=== PATIENT | female | born 1995 | race Caucasian/White ===

== ENCOUNTER 2023-11-18 06:03 | Day surgery (SDC) | payer OTHER ==
[2023-11-15 08:41] VITALS: BP 131/86
[~2023-11-18] VITALS: Ht 165.1 cm; Wt 77.3 kg
[~2023-11-18 06:03] MED LIST: CLARITIN10 M2 PO; K-TAB ER20 MEQ PO; LACTATED RINGER'S 1,000 ML IV SCH; LISINOPRIL-HCT1 EAC2 PO; MAGNESIUM250 M2 PO; SERTRALINE HCL50 MG PO; VIT D3-VIT K21 EACH PO; ZOLOFT50 MG PO
[2023-11-18 06:17] VITALS: BP 134/79
[2023-11-18] MEDS ORDERED: iopamidoL 30 ML VIAL ONE (06:47)
[2023-11-18] MEDS ORDERED: SODIUM CHLORIDE 0.9% 40 ML IV ONE (06:48)
[2023-11-18] MEDS ORDERED: HEParin SOD (PORCINE) 5,000 UNIT/0.5 ML SYR SUB-Q SCH (07:00)
[2023-11-18] MEDS ORDERED: CEFAZOLIN SODIUM 2 GM/20 ML SYR IV SCH (07:00)
[2023-11-18] MEDS ORDERED: LIDOCAINE HCL 1% 5 ML SDV INJ ONE (07:00)
[2023-11-18] MEDS ORDERED: IBLOOD GLUCOSE TEST STRIP 1 EA TEST VI PRN (07:00)
[2023-11-18] MEDS ORDERED: MIDAZOLAM HCL 2 MG/2 ML VIAL ONE (07:12)
[2023-11-18] MEDS ORDERED: propofoL 200 MG/20 ML VIAL ONE (07:12)
[2023-11-18] MEDS ORDERED: DEXAMETHASONE SOD PHOS 4 MG/ML VIAL ONE (07:12)
[2023-11-18] MEDS ORDERED: ondansetron HCL 4 MG/2 ML VIAL ONE (07:12)
[2023-11-18] MEDS ORDERED: KETOROLAC TROMETHAMINE 30 MG/ML VIAL ONE (07:12)
[2023-11-18] MEDS ORDERED: fentaNYL citrate 100 MCG/2 ML VIAL ONE ×2 (07:12→08:06)
[2023-11-18] MEDS ORDERED: ROCURONIUM BROMIDE 50 MG/5 ML SYR ONE (07:13)
--- NOTE | 2023-11-18 07:33 | NUR ---
VISITED DURING SPIRITUAL CARE ROUNDS. PT GONE FOR PROCEDURE. FAMILY MEMBER IN ROOM DENIED IMMEDIATE NEEDS. QUALITY ASSURANCE ASSOCIATE PROVIDED SUPPORTIVE PRESENCE, HOSPITALITY, PRAYER. FAMILY MEMBER EXPRESSED GRATITUDE.
--- NOTE | 2023-11-18 07:35 | NUR ---
VISITED DURING SPIRITUAL CARE ROUNDS. PT NOT IN ROOM, TALKED WITH FAMILY MEMBER. NO SIGNS OF ANXIETY IN EVIDENCE, STATED NO SPIRITUAL NEEDS OR CONCERNS. IDENTITY ACCESS MANAGEMENT ARCHITECT PROVIDED SUPPORTIVE PRESENCE, HOSPITALITY, PRAYER.
[2023-11-18] MEDS ORDERED: ePHEDrine sulfate 50 MG/ML AMP ONE (08:28)
[2023-11-18] MEDS ORDERED: ACETAMINOPHEN 1,000 MG/100 ML VIAL ONE (08:34)
--- NOTE | 2023-11-18 09:13 | NUR ---
11/18/23 0913 Fadumo Garcia 0852- PT ARRIVES TO PACU, SEMI HASTINGS POSITION ON ROOM AIR. PT REQUIRE CHIN LIFT AND INTERMITTENT JAW THRUST TO MAINTAIN AIRWAY. REMOVED PILLOW FROM BEHIND HEAD, O2 SATS LOW 90'S. LR INFUSING TO RH IV. ABD SOFT, NON DISTENDED, 4 LAP SITES WITH STERI STRIPS IN PLACE. PT NON REACTIVE TO ALL STIMULUS. ALL MONITORS IN PLACE. 0857- PT SATS DROP DOWN TO 88% WITH JAW THRUST, O2 PLACED AT 6L PER MASK. CONTINUE TO MONITOR. 0900- PT REACTIVE TO STIMULUS, OPENS EYES SLIGHTLY, NO LONGER NEEDING JAW THRUST. PT SWALLOWING. O2 REMAINS IN PLACE. 09- PT OPENS EYES TO STIMULUS AND LOOKS AROUND, REORIENTED TO TIME AND PLACE. PLACED ON ROOM AIR AT THIS TIME, DNIES PAIN AND NAUSEA. PT RESTING INTERMITTENTLY. PT CONTINUES TO HAVE NYSTAGMUS AT THIS TIME.
[2023-11-18] MEDS ORDERED: NALOXONE HCL 0.4 MG SYR IV PRN ×2 (09:15→09:30)
[2023-11-18] MEDS ORDERED: ondansetron HCL 4 MG/2 ML VIAL IV PRN ×2 (09:15→09:30)
[2023-11-18] MEDS ORDERED: fentaNYL citrate 100 MCG/2 ML VIAL IV PRN (09:15)
[2023-11-18] MEDS ORDERED: OXYCODON-ACETA1 EAC2 PO (09:21)
[2023-11-18] MEDS ORDERED: IBUPROFEN600 MG PO (09:21)
[2023-11-18] MEDS ORDERED: ACETAMINOPHEN500 MG PO (09:21)
[2023-11-18 09:30] VITALS: BP 131/63
[2023-11-18] MEDS ORDERED: ACETAMINOPHEN 500 MG TAB PO PRN (09:30)
[2023-11-18] MEDS ORDERED: IBUPROFEN 600 MG TAB PO PRN (09:30)
[2023-11-18] MEDS ORDERED: LACTATED RINGER'S 1,000 ML IV SCH (09:30)
[2023-11-18] MEDS ORDERED: OXYCODONE/APAP 7.5/325 TAB PO PRN (09:30)
--- NOTE | 2023-11-18 09:30 | NUR ---
PT ARRIVES TO FROM PACU VIA STRETCHER. PT IS SLIGHTLY TEARFUL AT THIS TIME, BUT STATES PAIN IS 3/10 AND TOLERABLE AT THIS TIME. PT DESCRIBES PAIN A PRESSURE IN HER ABDOMEN. X4 LAP SITES VISUALIZED, STERI STRIPS INTACT AND SCANT AMOUNT OF SS DRAINAGE AT THIS TIME. PT ON RA AND O2 >90% VIA PULSE OX, RESPIRATIONS EVEN AND UNLABORED, NO SIGNS OF DISTRESS. REPORT RECEIVED FROM FROM RONNELL JONES. IS AT BEDSIDE AT THIS TIME. ICE WATER, CRACKERS, AND JELLO PROVIDED. CALL LIGHT WITHIN REACH, PT REPORTS NO FURTHER NEEDS AT THIS TIME.
--- NOTE | 2023-11-18 10:25 | NUR ---
IN PT ROOM FOR VS AND ASSESSMENT. PT REPORTS PAIN 4/10 AND STATES THIS IS NOT TOLERABLE AT THIS TIME, PT ENCOURAGED TO CONSUME CRACKERS OR JELLO SO PAIN MED CAN BE PROVIDED, PT STATES VERBAL UNDERSTANDING AT THIS TIME. NO ACUTE CHANGES FROM PREVIOUS SURGICAL SITE ASSESSMENT. PRN PAIN MED GIVEN (SEE EMAR). CALL LIGHT WITHIN REACH, FAMILY AT BEDSIDE, PT REPORTS NO FURTHER NEEDS OR QUESTIONS AT THIS TIME.
[2023-11-18 10:26] VITALS: BP 119/60
[2023-11-18 11:42] VITALS: BP 119/65
--- NOTE | 2023-11-18 11:45 | NUR ---
IN PT ROOM FOR VS AND ASSESSMENT. NO ACUTE CHANGES FROM PREVIOUS ASSESSMENT. PT REPORTS PAIN HAS DECREASED TO TOLERABLE LEVEL OF 1/10 AT THIS TIME. PT HAS TOLERATED CRACKERS WITHOUT DIFFICULTY SWALLOWING AND NO NAUSEA REPORTED. REMAINS AT BEDSIDE. PT STATES VERBAL AGREEMENT TO AMBULATE IN 30 MINUTES. REMAINS AT BEDSIDE. CALL LIGHT WITHIN REACH, PT STATES NO FURTHER NEEDS OR QUESTIONS AT THIS TIME.
--- NOTE | 2023-11-18 11:55 | NUR ---
ANSWERED PT CALL LIGHT D/T PT STATES NEED TO URINE VOID. PILLOW FOR COUNTER PRESSURE USED AND PT EDUCATED ABOUT ABDOMINAL SUPPORT, PT STATES VERBAL UNDERSTANDING. PT SITS AT BEDSIDE AND REPORTS NO NAUSEA OR DIZZINESS AT THIS TIME. PT AMBULATES TO RESTROOM W/THIS RN STANDBY ASSIST, PT URINE VOID 900 ML OF CLEAR/YELLOW URINE. PT BACK TO ROOM AND SMALL AMOUNT OF NEW DRAINAGE FROM UMBILICAL LAP SITE, REINFORCED W/GAUZE AND MEDIPORE TAPE. PT STATES PAIN REMAINS TOLERABLE AT THIS TIME. PT IN ROOM TO ASSIST PT W/GETTING DRESSED AT THIS TIME.
--- NOTE | 2023-11-18 12:20 | NUR ---
IN PT ROOM FOR DC EDUCATION AT THIS TIME. PT AND PT STATE VERBAL UNDERSTANDING TO DC EDUCATION AND NO FURTHER QUESTIONS AT THIS TIME. PT THEN REPORTS SHE IS STARTING TO FEEL LIGHT HEADED. PT PLACED IN 30 DEGREE HOB SUPINE POSITION W/COLD AIR VIA RITIKA HUGGER IN PLACE. PT STATES FEELING SUBSIDED. ICE WATER PROVIDED AND PT DRINKING AT THIS TIME. CALL LIGHT WITHIN REACH, AT BEDSIDE, PT STATES NO FURTHER NEEDS AT THIS TIME.
--- NOTE | 2023-11-18 12:50 | NUR ---
PT STATES SHE IS FEELING BETTER. VS TAKEN. ASSESSMENT PERFORMED, NO ACUTE CHANGES FROM PREVIOUS ASSESSMENT. PT REPORTS PAIN REMAINS TOLERABLE AT THIS TIME. PT OFF OF UNIT VIA WC TO PASSENGER SIDE OF 'S VEHICLE. THIS RN STANDBY ASSIST. ALL BELONGINGS IN PT POSSESSION AT THIS TIME. PT REPORTS NO FURTHER NEEDS.
[2023-11-18 12:52] VITALS: BP 118/62
--- NOTE | 2023-11-19 10:44 | EKG ---
[facility] [address] [place], [place] [address] Signed Normal sinus rhythm Normal ECG No previous ECGs available Confirmed by Earline England MD ([id number]) on 11/19/2023 10:43:58 AM Electronically Signed By: EARLINE ENGLAND 11/19/23 1044 PATIENT NAME: PASCALE LEVI Electrocardiogram DATE OF : [birth year] PHYSICIAN: EARLINE ENGLAND REPORT #: [id number] REPORT IS CONFIDENTIAL AND NOT TO BE RELEASED WITHOUT AUTHORIZATION
--- NOTE | 2023-11-19 11:23 | OR ---
[facility] [address], [place] [address] Signed DATE OF OPERATION: 11/18/2023 SURGEON: Roverto Hemphill MD PREOPERATIVE DIAGNOSIS: Symptomatic gallstones. POSTOPERATIVE DIAGNOSIS: Symptomatic gallstones (two stones). PROCEDURE: Laparoscopic cholecystectomy with intraoperative cholangiogram. ANESTHESIA: General endotracheal, , EMPLOYEE BENEFITS SPECIALIST and local 10 mL of 0.25% Marcaine with epinephrine. INDICATION: This 28-year-old white woman is a patient of CHENTE Quiros. She was found to have right upper abdominal pain and symptoms highly typical of biliary colic, which has been going on for at least two months. She presented to the emergency room. She underwent ultrasound on July 08, 2023. The ultrasound was ordered by Dr. Kate. A single large gallstone was identified. The patient is admitted at this time to undergo cholecystectomy preferred by a laparoscopic approach. She understands the risk of bleeding, infection, bile duct injury, need for open procedure and failure to cure her symptoms. Understanding this, she wished to proceed. FINDINGS: The gallbladder was chronically inflamed and somewhat distended. Once excised, two gallstones were noted, 1.5 cm in size each. Chronic inflammatory change of the mucosa was noted. Intraoperative cholangiogram was normal. The liver was normal. DESCRIPTION OF PROCEDURE: The patient was brought to the operating room, given a general endotracheal anesthetic. Preoperative antibiotic Ancef was given. Sequential compression device stockings were used and heparin was subcutaneously administered. The abdomen was prepared with a chlorhexidine solution and draped sterilely. An infraumbilical incision was made and using an open Mali cannula technique, pneumoperitoneum was achieved to a level of 14 mmHg of carbon dioxide gas. Intra-abdominal inspection showed no sign of ascites or carcinomatosis. The liver was normal. The gallbladder was chronically inflamed and Electronically Signed By: ROVERTO HEMPHILL MD 11/19/23 1123 PATIENT NAME: PASCALE LEVI OPERATIVE REPORT DATE OF : [birth year] REPORT #: [id number] PHYSICIAN: ROVERTO HEMPHILL MD PCP: DANDRE GASTON PA-C REPORT IS CONFIDENTIAL AND NOT TO BE RELEASED WITHOUT AUTHORIZATION [facility] [address], [place] [address] Signed somewhat distended. Three additional trocars were placed in their usual configuration in the subxiphoid, right midclavicular, and right anterior axillary line. Gallbladder was elevated cephalad and was found to be rather tensely distended with bile. It was retracted laterally and using meticulous care of blunt and electrocautery dissection, the triangle of Calot was dissected free ultimately identifying well the cystic duct and a small cystic artery. The cystic artery was doubly clipped and divided. A clip was applied across the gallbladder cystic duct junction assuring the anatomy with a critical view of safety. A transverse choledochotomy was made high in the cystic duct. Using an Billy type cholangiocatheter, intraoperative cholangiography was undertaken showing free flow of contrast in biliary tree. Some minimal retrograde filling was noted, but there was no sign of filling defect or biliary anomaly. The cystic duct was triply clipped and divided and gallbladder was dissected free in a retrograde fashion using electrocautery. A very small rent was made in the gallbladder allowing for spillage of clear bile. On that basis, the gallbladder was placed in an endobag and extracted through the infraumbilical port site without problem. The gallbladder was opened on the back table and found to have two 1.5 cm gallstones with pale mucosa and chronic inflammatory change. Irrigation was undertaken in the subhepatic space. There was no sign of bile leak, bleeding, or other problems. Excess irrigation fluid was suctioned free. The trocars were removed under direct visualization showing no sign of bleeding. The infraumbilical fascial incision was reapproximated with interrupted 0 Vicryl suture. A 10 mL of 0.25% Marcaine with epinephrine was injected locally. The skin was closed with interrupted 3-0 Vicryl. Steri-Strips were applied. The patient was ultimately extubated and transferred to the recovery room in good condition having suffered no complication. Sponge, needle, and instrument counts were reported as correct x3. MD MARI Lopez/MODL /[id number] cc: PA. Dr. Miguel Quiros Electronically Signed By: ROVERTO HEMPHILL MD 11/19/23 1123 PATIENT NAME: PASCALE LEVI OPERATIVE REPORT DATE OF : [birth year] REPORT #: [id number] PHYSICIAN: ROVERTO HEMPHILL MD PCP: DANDRE GASTON PA-C REPORT IS CONFIDENTIAL AND NOT TO BE RELEASED WITHOUT AUTHORIZATION [address] [address] Signed Copies: ~ Electronically Signed By: ROVERTO HEMPHILL MD 11/19/23 1123 PATIENT NAME: PASCALE LEVI OPERATIVE REPORT DATE OF : [birth year] REPORT #: [id number] PHYSICIAN: ROVERTO HEMPHILL MD PCP: DANDRE GASTON PA-C REPORT IS CONFIDENTIAL AND NOT TO BE RELEASED WITHOUT AUTHORIZATION
== END 2023-11-18 12:55 | disposition home or self-care (01) ==
LOC: DS 06:03
PROVIDERS: ATTEND Surgery
PROC: BF03YZZ Plain Radiography of Gallbladder and Bile Ducts using Other Contrast (ICD-10-PCS; 2023-11-18)
PROC: 0FT44ZZ Resection of Gallbladder, Percutaneous Endoscopic Approach (ICD-10-PCS; principal; 2023-11-18 07:30)
DX: K80.10 Calculus of gallbladder with chronic cholecystitis without obstruction (principal); I10 Essential (primary) hypertension; Z88.1 Allergy status to other antibiotic agents; Z88.2 Allergy status to sulfonamides; Z79.899 Other long term (current) drug therapy
CPT/HCPCS: 74300; 93005; 93010; J0131; J0690; J1100; J1644; J1885; J2250; J2405; J2704; J3010; J3490; J7121; Q9967